=== PATIENT | female | born 1965 | race Caucasian/White ===

== ENCOUNTER 2018-08-14 13:52 | Emergency (ER) | payer SELFPAY ==
[2018-08-14 14:05] LABS: #Basophils 0.1 thou/uL (0.0-0.2); #Eosinphils 0.1 thou/uL (0.0-0.7); #Monocytes 0.8 thou/uL (0.11-0.59); #Neutrophils 7.4 thou/uL (1.40-6.50); %Basophils 0.7 % (0.0-1.0); %Eosinophils 0.7 % (0.0-10.0); %Lymphocytes 19.5 % (21.0-51.0); %Monocytes 7.6 % (0.0-10.0); %Neutrophils 71.5 % (42.0-75.0); Hemoglobin 13.2 g/dL (12.0-16.0); Mean Corpuscular HGB CONC 34.6 g/dL (32.0-36.0); Mean Corpuscular Hemoglobin 30.7 pg (27.0-31.0); Mean Corpuscular Volume 88.5 fL (78.0-98.0); Mean Platelet Volume 7.1 fL (7.4-10.4); Platelet Count 315 thou/uL (130-400); RBC Distribution Width 12.3 % (11.5-14.5); Red Blood Cell (RBC) Count 4.31 mill/uL (4.20-5.40); White Blood Cell (WBC) Count 10.3 thou/uL (4.8-10.8)
[2018-08-14] MEDS ORDERED: Adacel (T-DAP) 0.5 ML SYRINGE ONE (14:06)
[2018-08-14 14:11] LABS: PTT 25.5 SEC (22.9-36.1); Prothrombin Time 13.1 SEC (12.0-14.7)
[2018-08-14 14:21] LABS: ALT (SGPT) 73 U/L (8-55); AST (SGOT) 87 U/L (5-34); Albumin 4.4 g/dL (3.5-5.0); Alkaline Phosphatase 54 U/L (40-150); Anion Gap 14 mmol/L (10-20); BUN (Urea Nitrogen) 16 mg/dL (9.8-20.1); Bilirubin, Total 0.5 mg/dL (0.2-1.2); Calc. Creatinine Clearance 0 mL/min (70-130); Calcium 9.5 mg/dL (7.8-10.44); Carbon Dioxide 23 mmol/L (22-29); Chloride 105 mmol/L (98-107); Estimated GFR-MDRD 75; Globulin 2.6 g/dL (2.4-3.5); Glucose 138 mg/dL (70-105); Lipase 29 U/L (8-78); Potassium 3.8 mmol/L (3.5-5.1); Sodium 138 mmol/L (136-145)
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
[2018-08-14] MEDS ORDERED: ISOVUE-370 76%-LOCM 1 ML ONE (16:11)
[2018-08-14 19:02] LABS: Bilirubin Negative (Negative); Blood, Urine Trace (Negative); Clarity CLEAR (Clear); Glucose, Urine (Dipstick) Negative (Negative); Leukocyte Negative (Negative); Nitrite Negative (Negative); Protein, Urine (Dipstick) Negative (Neg-Trace)
[2018-08-14 19:03] LABS: Bacteria/HPF None Seen HPF (None Seen); Hyaline Casts/LPF 0-3 HYALINE CAST LPF (0-3 Hyaline); Pathc Cast-AUWi Flag 0.13 (0-2.49); Squamous Epithelial 0-3 HPF (0-3); WBC/HPF None Seen HPF (0-3)
[2018-08-14 19:11] LABS: Specific Gravity, Urine Greater than 1.060 (1.002-1.036)
[2018-08-14] MEDS ORDERED: Ketorolac Tromethamine 30 MG/ML VIAL ONE (22:15)
[2018-08-14] MEDS ORDERED: HYDROcodone/Acetaminophen 10/325 mg Tablet ONE (22:15)
== END 2018-08-14 22:35 | disposition home or self-care (01) ==
LOC: ERS 13:52
DX: S82.832A Other fracture of upper and lower end of left fibula, initial encounter for closed fracture (principal); S43.439A Superior glenoid labrum lesion of unspecified shoulder, initial encounter; S00.83XA Contusion of other part of head, initial encounter; S80.01XA Contusion of right knee, initial encounter; J94.8 Other specified pleural conditions; E11.9 Type 2 diabetes mellitus without complications; E78.5 Hyperlipidemia, unspecified; Z79.84 Long term (current) use of oral hypoglycemic drugs; Z79.899 Other long term (current) drug therapy; V29.9XXA Motorcycle rider (driver) (passenger) injured in unspecified traffic accident, initial encounter
CPT/HCPCS: 70450; 71045; 71260; 72125; 74177; 80053; 80307; 81003; 81015; 83690; 85025; 85610; 85730; 90471; 90715; 93306; 96365; 96375; G0390; J0690; J1885; Q9966